=== PATIENT | female | born 1980 | race Asian ===

== ENCOUNTER 2016-08-16 16:44 | Emergency (ER) | payer BC, OTHER ==
[~2016-08-16] VITALS: Ht 160 cm; Wt 60.0 kg
[~2016-08-16 16:44] MED LIST: AMO500 PO; NAPR-688 PO; UDROBAC PO
[2016-08-16 16:46] VITALS: Ht 160 cm; Wt 60.0 kg
[2016-08-16] MEDS ORDERED: FAMOTIDINE 20 MG TAB PO STA (17:23)
[2016-08-16] MEDS ORDERED: LIDOCAINE/MYLANTA 40 ML BTL PO STA (17:23)
[2016-08-16] MEDS ORDERED: ONDANSETRON (ODT) 4 MG TAB ODT STA (17:32)
[2016-08-16 17:45] LABS: ADD SCAN DIFF NO
[2016-08-16 17:47] LABS: BASOPHIL # 0.1 10^3/ul (0.0-0.1); BASOPHILS % 0.5 % (0.0-2.0); EOSINOPHILS # 0.1 10^3/ul (0.0-0.5); EOSINOPHILS % 1.3 % (0.0-7.0); HEMATOCRIT 40.6 % (37.0-47.0); HEMOGLOBIN 13.5 g/dl (12.0-16.0); LYMPHOCYTES # 2.3 10^3/ul (0.8-2.9); LYMPHOCYTES % 23.4 % (15.0-51.0); MEAN CORPUSCULAR HEMOGLOBIN 29.7 pg (29.0-33.0); MEAN CORPUSCULAR HGB CONC 33.3 g/dl (32.0-37.0); MEAN CORPUSCULAR VOLUME 89.2 fl (82.0-101.0); MEAN PLATELET VOLUME 10.7 fl (7.4-10.4); MONOCYTE # 0.7 10^3/ul (0.3-0.9); MONOCYTES % 7.6 % (0.0-11.0); NEUTROPHIL # 6.5 10^3/ul (1.6-7.5); NEUTROPHILS % 66.9 % (39.0-77.0); PLATELET COUNT 224 10^3/UL (140-415); RED BLOOD COUNT 4.55 10^6/ul (4.20-5.40); RED CELL DISTRIBUTION WIDTH 11.9 % (11.5-14.5); WHITE BLOOD COUNT 9.7 10^3/ul (4.8-10.8)
[2016-08-16 18:02] LABS: ALBUMIN 4.6 g/dl (3.3-4.9)
[2016-08-16 18:03] LABS: POTASSIUM 3.5 mmol/L (3.5-5.1)
[2016-08-16 18:05] LABS: ALBUMIN/GLOBULIN RATIO 1.21; BILIRUBIN,INDIRECT 0.5 mg/dl (0-1.1); BILIRUBIN,TOTAL 0.5 mg/dl (0.2-1.3); CREATININE 0.62 mg/dl (0.44-1.00); TOTAL PROTEIN 8.4 g/dl (6.1-8.1)
[2016-08-16 18:06] LABS: CALCIUM 9.5 mg/dl (8.4-10.2)
[2016-08-16 18:11] LABS: ADD UMIC NO; URINE BILIRUBIN (Dip) NEGATIVE (NEGATIVE); URINE BLOOD (Dip) NEGATIVE (NEGATIVE); URINE COLOR LT. YELLOW (YELLOW); URINE GLUCOSE (Dip) NEGATIVE (NEGATIVE); URINE KETONES (Dip) NEGATIVE (NEGATIVE); URINE LEUKOCYTE ESTERASE (Dip) NEGATIVE (NEGATIVE); URINE NITRITE (Dip) NEGATIVE (NEGATIVE); URINE TOTAL PROTEIN (Dip) NEGATIVE (NEGATIVE); URINE UROBILINOGEN (Dip) 0.2 E.U./dL (0.1-1.0)
--- NOTE | 2016-08-16 18:18 | RADRPT ---
PROCEDURE: Right upper quadrant abdominal ultrasound. CLINICAL INDICATION: Abdominal pain TECHNIQUE: Arriaga scale and color doppler ultrasound images of the right upper quadrant. COMPARISON: None FINDINGS: Pancreas: Visualized portions appear of normal echogenicity, no focal lesions. Liver: Morphology: Normal in size and contour. Echogenicity: Normal. Focal lesions: None. Main portal vein: Patent with hepatopetal flow. Biliary System: Gallbladder is partially contracted with questionable areas of gallbladder wall thickening in the fu ndal region; the neck of the gallbladder has a more normal thickness measuring up to 3 mm. Several gallstones are present within the gallbladder. No intrahepatic biliary dilatation. Common bile duct measures 3.4 mm in maximal dimension. Kidneys: Right 10.4 cm in length. Right renal cortical thickness is preserved. Normal echogenicity. No hydronephrosis. No renal calculi. No focal lesions. No free fluid identified. IMPRESSION: Multiple gallstones present within the gallbladder including within the neck of the gallbladder. Asymmetric gallbladder wall thickness with normal thickness in the region of the gallbladder neck an d increasing in the fundal region is of uncertain etiology. Differential considerations includes ea rly cholecystitis versus adenomyosis of the fundus. HIDA scan can be obtained for further evaluatio n if clinical suspicion of cholecystitis. No evidence of intrahepatic or extrahepatic biliary dilatation. RPTAT: AADD .Jamarcus Akins MD, MD Date Time Electronically viewed and signed by .Jamarcus Akins MD, MD on 08/16/2016 18:18 .B/
[2016-08-16] MEDS ORDERED: HYDR-906 PO (19:00)
[2016-08-16] MEDS ORDERED: DICY10CA60 PO (19:00)
[2016-08-16] MEDS ORDERED: CIPR500T4 PO (19:00)
[2016-08-16 19:10] VITALS: BP 118/77; PULSE 87; RESP 16; TEMP 98.2
--- NOTE | 2016-08-16 20:58 | ERD ---
ER Documentation Chief Complaint Date/Time DATE: 08/16/16 TIME: 20:51 Chief Complaint RUQ PAIN X 2 DAYS HPI 35-year-old female patient with no significant past medical history presents the ED complaining of a right upper quadrant abdominal pain that started 2 days ago. Reports that she is nauseous but denies any vomiting. Describes the pain as a burning sensation and rates it a 4 out of 10. States that she tried taking a hydrocodone which slightly alleviated her pain. Denies any fever, diarrhea, constipation, vaginal bleeding, vaginal discharge, chest pain, shortness of breath, cough, rhinorrhea. Denies any drug, alcohol use or smoking. Reports that she has normal daily bowel movements. States that her last menses was on August 05, 2016. ROS All systems reviewed and are negative except as per history of present illness. Medications Home Meds Active Scripts Ciprofloxacin Hcl* (Ciprofloxacin Hcl*) 500 Mg Tablet, 500 MG PO BID for 7 Days , TAB Prov:NAOMI LUTHER PA-C 08/16/16 Dicyclomine Hcl* (Bentyl*) 10 Mg Capsule, 10 MG PO QID, #20 CAP Prov:NAOMI LUTHER PA-C 08/16/16 Hydrocodone/Acetaminophen (Fiatt 5-325 Tablet) 1 Each Tablet, 1 TAB PO QHS Y for PAIN, #7 TAB Prov:NAOMI LUTHER PA-C 08/16/16 Naproxen* (Naproxen*) 500 Mg Tablet, 500 MG PO BID Y for PAIN, #14 TAB Prov:MONTEZ PEREZ DO 06/12/15 Amoxicillin* (Amoxicillin*) 500 Mg Cap, 500 MG PO Q8, #30 CAP Prov:MONTEZ PEREZ DO 06/12/15 Guaifenesin-Codeine Phosphate* (Robitussin* AC) 5 Ml Syrup, 5 ML PO Q6H Y for COUGH, #120 ML Prov:MONTEZ PEREZ DO 06/12/15 Allergies Allergies: Coded Allergies: No Known Allergy (Unverified , 08/16/16) PMhx/Soc Medical and Surgical Hx: pt denies Medical Hx, pt denies Surgical Hx History of Surgery: No Anesthesia Reaction: No Hx Neurological Disorder: No Hx Respiratory Disorders: No Hx Cardiac Disorders: No Hx Psychiatric Problems: No Hx Miscellaneous Medical Probl: No Hx Alcohol Use: No Hx Substance Use: No Hx Tobacco Use: No Smoking Status: Never smoker Physical Exam Vitals Vital Signs Date Time Temp Pulse Resp B/P Pulse Ox O2 Delivery O2 Flow Rate FiO2 08/16/16 19:10 98.2 87 16 118/77 98 Room Air 08/16/16 16:46 98.3 110 18 118/80 99 Physical Exam Const: Ecj-[id number]-wpehulbcu, well-nourished. In no acute distress. Head: Atraumatic, normocephalic Eyes: Normal Conjunctiva without injection. No purulent discharge. ENT: Normal external ear, nose. Moist oropharynx without tonsillar exudates. Non -erythematous pharynx. Uvula midline. No drooling. No trismus. Neck: No cervical midline tenderness. Full range of motion. No meningismus. No cervical lymphadenopathy. No JVD. Resp: Clear to auscultation bilaterally. No wheezing, rhonchi, rales, or crackles. No accessory muscle use. No retractions. Cardio: Regular rate and rhythm. No murmurs, rubs or gallops. Abd: Soft, right upper quadrant tenderness, non distended. Normal bowel sounds. No palpable masses. No rebound tenderness. No guarding. Negative McBurney' s point. Negative psoas sign. Negative obturator sign. Skin: No petechiae or rashes Back: No midline tenderness. No CVA tenderness. Ext: No cyanosis, or edema. Neur: Awake and alert. Normal gait. Normal coordination. Psych: Normal Mood and Affect Result Diagram: 08/16/16 1740 08/16/16 1740 Results 24 hrs Laboratory Tests Test 08/16/16 17:40 White Blood Count 9.710^3/ul Red Blood Count 4.5510^6/ul Hemoglobin 13.5g/dl Hematocrit 40.6% Mean Corpuscular Volume 89.2fl Mean Corpuscular Hemoglobin 29.7pg Mean Corpuscular Hemoglobin Concent 33.3g/dl Red Cell Distribution Width 11.9% Platelet Count 84926^3/UL Mean Platelet Volume 10.7fl Neutrophils % 66.9% Lymphocytes % 23.4% Monocytes % 7.6% Eosinophils % 1.3% Basophils % 0.5% Nucleated Red Blood Cells % 0.0/100WBC Neutrophils # 6.510^3/ul Lymphocytes # 2.310^3/ul Monocytes # 0.710^3/ul Eosinophils # 0.110^3/ul Basophils # 0.110^3/ul Nucleated Red Blood Cells # 0.010^3/ul Urine Color LT. YELLOW Urine Clarity SLIGHTLY CLOUDY Urine pH 6.0 Urine Specific [place] 1.025 Urine Ketones NEGATIVE Urine Nitrite NEGATIVE Urine Bilirubin NEGATIVE Urine Urobilinogen 0.2 E.U./dL Urine Leukocyte Esterase NEGATIVE Urine Hemoglobin NEGATIVE Urine Glucose NEGATIVE% Urine Total Protein NEGATIVE Sodium Level 143mmol/L Potassium Level 3.5mmol/L Chloride Level 100mmol/L Carbon Dioxide Level 29mmol/L Anion Gap 18 Blood Urea Nitrogen 12mg/dl Creatinine 0.62mg/dl Glucose Level 108mg/dl Calcium Level 9.5mg/dl Total Bilirubin 0.5mg/dl Direct Bilirubin 0.00mg/dl Indirect Bilirubin 0.5mg/dl Aspartate Amino Transf (AST/SGOT) 24IU/L Alanine Aminotransferase (ALT/SGPT) 34IU/L Alkaline Phosphatase 64IU/L Total Protein 8.4g/dl Albumin 4.6g/dl Globulin 3.80g/dl Albumin/Globulin Ratio 1.21 Lipase 42U/L Current Medications Medications (Trade) Dose Ordered Sig/Dionte Route PRN Reason Start Time Stop Time Status Last Admin Dose Admin Famotidine (Pepcid) 20 mg ONCE STAT PO 08/16/16 17:23 08/16/16 17:28 DC 08/16/16 17:34 Miscellaneous Medication (Gi Cocktail (2)) 40 ml ONCE STAT PO 08/16/16 17:23 08/16/16 17:28 DC 08/16/16 17:34 Ondansetron HCl (Zofran Odt) 4 mg ONCE STAT ODT 08/16/16 17:32 08/16/16 17:34 DC Procedures/MDM This is a 35-year-old female patient with no significant past medical history presents the ED complaining of right upper quadrant pain started 2 days ago associated with nausea. Patient is afebrile and nontoxic-appearing. Patient was further worked up with CBC, CMP, lipase, UA, urine , gallbladder ultrasound. Patient's pain and symptoms have improved after treatment with GI cocktail, Famotidine, Zofran. CBC: No leukocytosis. No e/o of systemic infection. No e/o anemia. CMP: No e/o severe acidosis, alkalosis, renal failure, diabetic ketoacidosis, liver disease Lipase within normal limits. Urine: No leukocyte esterase, no nitrites, no hematuria. Urine : negative PROCEDURE: Right upper quadrant abdominal ultrasound. CLINICAL INDICATION: Abdominal pain TECHNIQUE: Arriaga scale and color doppler ultrasound images of the right upper quadrant. COMPARISON: None FINDINGS: Pancreas: Visualized portions appear of normal echogenicity, no focal lesions. Liver: Morphology: Normal in size and contour. Echogenicity: Normal. Focal lesions: None. Main portal vein: Patent with hepatopetal flow. Biliary System: Gallbladder is partially contracted with questionable areas of gallbladder wall thickening in the fundal region; the neck of the gallbladder has a more normal thickness measuring up to 3 mm. Several gallstones are present within the gallbladder. No intrahepatic biliary dilatation. Common bile duct measures 3.4 mm in maximal dimension. Kidneys: Right 10.4 cm in length. Right renal cortical thickness is preserved. Normal echogenicity. No hydronephrosis. No renal calculi. No focal lesions. No free fluid identified. IMPRESSION: Multiple gallstones present within the gallbladder including within the neck of the gallbladder. Asymmetric gallbladder wall thickness with normal thickness in the region of the gallbladder neck and increasing in the fundal region is of uncertain etiology. Differential considerations includes early cholecystitis versus adenomyosis of the fundus. HIDA scan can be obtained for further evaluation if clinical suspicion of cholecystitis. No evidence of intrahepatic or extrahepatic biliary dilatation. A differential diagnosis considered includes but is not limited to gastritis, GERD, peptic ulcer disease, cholecystitis, choledocholithiasis, cholangitis, pancreatitis, appendicitis, bowel obstruction, ileus, volvulus, nephrolithiasis , pyelonephritis, hepatitis, perforated viscus, diverticulitis, abdominal hernia , acute abdomen, mesenteric ischemia or other emergent conditions. Patient has multiple gallstones noted within the gallbladder. The asymmetric gallbladder wall thickness was discussed with my supervising physician, Dr. Chacko. Patient will be prescribed an outpatient antibiotic in case this could be early cholecystitis. However there is no leukocytosis. No elevated bilirubin. No elevated liver enzymes. Low suspicion for choledocholithiasis, cholangitis, pancreatitis, cholecystitis or other emergent conditions. Dr. Chacko agreed with the management and discharge plan. Discharge medications: Bentyl, Fiatt, Ciprofloxacin Follow up with primary care physician in 1-2 days for referral to general surgeon. Instructed patient to return to the ED sooner for any worsening symptoms. Patient's questions were answered. Patient understood and agreed with discharge plan. Patient discharged stable. Departure Diagnosis: Primary Impression: Multiple gallstones Condition: Stable Patient Instructions: What Are Gallstones?, Biliary Colic With Gallstone ( Confirmed) Referrals: [facility] YOU HAVE RECEIVED A MEDICAL SCREENING EXAM AND THE RESULTS INDICATE THAT YOU DO NOT HAVE A CONDITION THAT REQUIRES URGENT TREATMENT IN THE EMERGENCY DEPARTMENT. FURTHER EVALUATION AND TREATMENT OF YOUR CONDITION CAN WAIT UNTIL YOU ARE SEEN IN YOUR DOCTORS OFFICE WITHIN THE NEXT 1-2 DAYS. IT IS YOUR RESPONSIBILITY TO MAKE AN APPOINTMENT FOR FOLOW-UP CARE. IF YOU HAVE A PRIMARY DOCTOR --you should call your primary doctor and schedule an appointment IF YOU DO NOT HAVE A PRIMARY DOCTOR YOU CAN CALL OUR PHYSICIAN REFERRAL HOTLINE AT IF YOU CAN NOT AFFORD TO SEE A PHYSICIAN YOU CAN CHOSE FROM THE FOLLOWING [facility] [address] [facility] [address] [facility] [facility] [address] [facility] [address] [facility] [address] [facility]. [facility]. [address] [facility]. [facility] YOU HAVE RECEIVED A MEDICAL SCREENING EXAM AND THE RESULTS INDICATE THAT YOU DO NOT HAVE A CONDITION THAT REQUIRES URGENT TREATMENT IN THE EMERGENCY DEPARTMENT. FURTHER EVALUATION AND TREATMENT OF YOUR CONDITION CAN WAIT UNTIL YOU ARE SEEN IN YOUR DOCTORS OFFICE WITHIN THE NEXT 1-2 DAYS. IT IS YOUR RESPONSIBILITY TO MAKE AN APPOINTMENT FOR FOLOW-UP CARE. IF YOU HAVE A PRIMARY DOCTOR --you should call your primary doctor and schedule and appointment IF YOU DO NOT HAVE A PRIMARY DOCTOR YOU CAN CALL OUR PHYSICIAN REFERRAL HOTLINE AT . IF YOU CAN NOT AFFORD TO SEE A PHYSICIAN YOU CAN CHOSE FROM THE FOLLOWING [facility] INSTITUTIONS: [facility] [id number] [place] [id number] [facility] [address] [place] [address] [facility] [address] [place] [address] [facility] URGENT CARE/SPECIALTIES Additional Instructions: FOLLOW UP WITH YOUR PRIMARY CARE PHYSICIAN TOMORROW for a referral to a general surgeon. Return to this facility if you are not improving as expected - fever, worsening abdominal pain, vomiting. NAOMI LUTHER PA-C August 16, 2016 20:58
== END 2016-08-16 19:11 | disposition home or self-care (01) ==
LOC: FTE 16:44
DX: K80.20 Calculus of gallbladder without cholecystitis without obstruction (principal)
CPT/HCPCS: 76705; 80053; 81003; 83690; 85025

== ENCOUNTER 2018-08-24 15:13 | Emergency (ER) | payer MEDICAID, OTHER ==
[~2018-08-24] VITALS: Wt 57.4 kg
[~2018-08-24 15:13] MED LIST changes: -AMO500 PO; +AMOX500C2 PO; +CIPR500T4 PO; +CODE5LIQ2 PO; +DICY10CA40 PO; +HYDR-4011 PO; -UDROBAC PO
[2018-08-24 15:18] VITALS: BP 132/62; PULSE 91; RESP 18
[2018-08-24] MEDS ORDERED: IBUP-1542 PO (17:28)
[2018-08-24] MEDS ORDERED: IBUPROFEN 600 MG TAB PO ONE (17:30)
--- NOTE | 2018-08-24 17:42 | ERD ---
ER Documentation Chief Complaint Chief Complaint RIGHT FOOT PAIN HPI 37-year-old female presents to the ED complaining of continued right foot pain for the past 3 months. She states she fell downstairs 3 months ago and sustained a fracture to her right foot. She was placed in a splint and saw an orthopedist who has been referring her to physical therapy. She has been doing physical therapy 2 times a week for the past 1 month but continues to have pain. She is requesting MRI. She states she is able to ambulate but has intermittent pounding, sharp pain around her mid foot and ankle associated with some subjective numbness and tingling. Has not been taking any pain medications for this. No other injuries. No new falls. No other complaints. ROS All systems reviewed and are negative except as per history of present illness. Medications Home Meds Active Scripts Ibuprofen* (Motrin*) 600 Mg Tab, 600 MG PO Q6H PRN for PAIN AND OR ELEVATED TEMP, #30 TAB Prov:STACEY CARROLL PA-C 08/24/18 Ciprofloxacin Hcl* (Ciprofloxacin Hcl*) 500 Mg Tablet, 500 MG PO BID for 7 Days, TAB Prov:NAOMI LUTHER PA-C 08/16/16 Dicyclomine HCl (Dicyclomine HCl) 10 Mg Capsule, 10 MG PO QID, #20 CAP Prov:NAOMI LUTHER PA-C 08/16/16 Hydrocodone/Acetaminophen (B[place] 5-325 Tablet) 1 Each Tablet, 1 TAB PO QHS PRN for PAIN, #7 TAB Prov:NAOMI LUTHER PA-C 08/16/16 Naproxen* (Naproxen*) 500 Mg Tablet, 500 MG PO BID PRN for PAIN, #14 TAB Prov:MONTEZ PEREZ DO 06/12/15 Amoxicillin* (Amoxicillin*) 500 Mg Cap, 500 MG PO Q8, #30 CAP Prov:MONTEZ PEREZ DO 06/12/15 Guaifenesin-Codeine Phosphate* (Robitussin* AC) 5 Ml Syrup, 5 ML PO Q6H PRN for COUGH, #120 ML Prov:MONTEZ PEREZ DO 06/12/15 Allergies Allergies: Coded Allergies: No Known Allergy (Unverified , 08/16/16) PMhx/Soc Medical and Surgical Hx: pt denies Medical Hx, pt denies Surgical Hx History of Surgery: No Anesthesia Reaction: No Hx Neurological Disorder: No Hx Respiratory Disorders: No Hx Cardiac Disorders: No Hx Psychiatric Problems: No Hx Miscellaneous Medical Probl: No Hx Alcohol Use: No Hx Substance Use: No Hx Tobacco Use: No Smoking Status: Never smoker Physical Exam Vitals Vital Signs Date Temp Pulse Resp B/P (MAP) Pulse Ox O2 O2 Flow FiO2 Time Delivery Rate 08/24/18 99.0 91 18 132/62 99 15:18 (85) Physical Exam Const: No acute distress Head: Atraumatic Eyes: Normal Conjunctiva ENT: Normal External Ears, Nose and Mouth. Lower Extremity - right Skin: No laceration Compartments: Soft Motor: Full active range of motion of right foot and ankle Sensation: Intact to light touch FDWS/MF/LF/P surfaces. Bones: + Mild TTP to midfoot. Nontender malleoli Joints: No effusion or laxity Pulses/Perfusion: 2+ DP, Capillary refill < 2 seconds Neur: Awake and alert Psych: Normal Mood and Affect Results 24 hrs Current Medications Medications Dose Sig/Dionte Start Time Status Last (Trade) Ordered Route PRN Stop Time Admin Dose Reason Admin Ibuprofen 600 mg ONCE ONCE 08/24/18 DC 08/24/18 (Motrin) PO 17:30 17:34 08/24/18 17:31 Procedures/MDM LABS & DIAGNOSTIC IMAGING: PROCEDURE: XR Foot. CLINICAL INDICATION: pain TECHNIQUE: AP, lateral and oblique views of the right foot was obtained. The images were reviewed on a PACS workstation. COMPARISON: None. FINDINGS: The bones of the foot appear intact, with no evidence of acute fracture, dislocation, or subluxation. The joint spaces are preserved. Bone mineralization is normal. No significant soft tissue swelling is seen. RPTAT: AA IMPRESSION: Unremarkable right foot radiographs. PROCEDURES: Ortho boot Assessment: Neurovascularly intact post splint placement with good fit. ED COURSE: The patient was given Ibuprofen The medication was well tolerated and the patient had market improvement in symptoms. The patient remained stable throughout ED course. MEDICAL DECISION MAKIN-year-old female presents with continued foot pain with numbness and tingling status post right foot fracture 3 months ago. She requested an MRI. Discussed with her that I do not think MRI is indicated at this time. An x-ray was taken to assess for any new fracture/poor healing of previous fracture which was unremarkable. She was given copies of her x-ray report as well as a CD copy and given referral to orthopedic to follow-up with. She can get an MRI done as outpatient through this. Given rx ibuprofen for pain. Strict return precautio ns were discussed. Patient's extremity symptoms have stabilized while they have been evaluated in the department and are appropriate for outpatient follow up. No evidence of compartment syndrome, neurologic injury, vascular injury, open joint, open fracture, tendon laceration, or foreign body. PRESCRIPTIONS: Ibuprofen SPECIALIST FOLLOW UP RECOMMENDED: [facility] Patient has been advised to follow up with primary care in 1-2 days. Departure Diagnosis: Primary Impression: Foot pain Laterality: right Qualified Codes: M79.671 - Pain in right foot Condition: Stable Patient Instructions: Sprain Foot Referrals: [facility] Urgent Care 7 a.m.- 11 p.m. Every Day of the Week NO APPOINTMENT OR AUTHORIZATION NEEDED Additional Instructions: Please follow-up with the [facility]. You can continue to wear the boot as needed for any pain. You can take ibuprofen and prescribed you for pain as well. I recommend continuing with physical therapy and if you are still having continued pain, see the orthopedic [facility] for MRI of your foot. Return here for any new or worsening symptoms. STACEY CARROLL PA-C August 24, 2018 17:42
== END 2018-08-24 18:37 | disposition home or self-care (01) ==
LOC: FTE 15:13
DX: M79.671 Pain in right foot (principal)
CPT/HCPCS: 29515; 73630; Z7502; Z7610